=== PATIENT | male | born 1950 | race Caucasian/White ===

== ENCOUNTER → 2017-10-22 | Outpatient (CLI) | payer MEDICARE | END | disposition home or self-care (01) | LOC: CFH 11:38 | PROVIDERS: ATTEND Nurse Practitioner | DX: M16.11 Unilateral primary osteoarthritis, right hip (principal); M51.37 Other intervertebral disc degeneration, lumbosacral region | CPT/HCPCS: 72100 ==

== ENCOUNTER → 2017-11-11 | Outpatient (CLI) | payer MEDICARE | END | disposition home or self-care (01) | LOC: CFH 11:51 | PROVIDERS: ATTEND Nurse Practitioner | DX: M51.17 Intervertebral disc disorders with radiculopathy, lumbosacral region (principal); M48.07 Spinal stenosis, lumbosacral region | CPT/HCPCS: 72148 ==

== ENCOUNTER 2017-11-25 10:29 | Emergency (ER) | payer MEDICARE ==
[~2017-11-25] VITALS: Ht 172.7 cm; Wt 109.7 kg
[2017-11-25 10:31] VITALS: BP 136/76
[2017-11-25] MEDS ORDERED: FLUORESCEIN OPHTHALMIC 1 MG STRIP ONE (10:47)
[2017-11-25] MEDS ORDERED: PROPARACAINE OPHTH 0.5%, 15ML ONE (10:47)
[2017-11-25] MEDS ORDERED: PROPARACAINE OPHTH 0.5%, 15ML EACHEYE ONE (11:00)
[2017-11-25] MEDS ORDERED: FLUORESCEIN OPHTHALMIC 1 MG STRIP EACHEYE ONE (11:00)
== END 2017-11-25 11:46 | disposition home or self-care (01) ==
LOC: ED 11:40
DX: T15.02XA Foreign body in cornea, left eye, initial encounter (principal); Z88.5 Allergy status to narcotic agent; Z88.0 Allergy status to penicillin; Z88.2 Allergy status to sulfonamides; Y93.89 Activity, other specified; Y99.8 Other external cause status; Y92.009 Unspecified place in unspecified non-institutional (private) residence as the place of occurrence of the external cause
CPT/HCPCS: 65222

== ENCOUNTER 2020-01-04 12:28 | Outpatient (CLI) | payer MEDICARE ==
[~2020-01-04 12:28] MED LIST: ASPI81TA45 PO; ATOR-2 PO; METO25TA91 PO; NITR0.4T28 SL; PRAS10TA4 PO
== END 2020-01-04 23:59 | disposition home or self-care (01) ==
LOC: CVU 12:28
PROVIDERS: ATTEND Internal Medicine Cardiovascular Disease
DX: I65.23 Occlusion and stenosis of bilateral carotid arteries (principal); I25.10 Atherosclerotic heart disease of native coronary artery without angina pectoris
CPT/HCPCS: 93880; 93922

== ENCOUNTER 2020-06-24 14:53 | Emergency (ER) | payer MEDICARE ==
[~2020-06-24] VITALS: Ht 172.7 cm; Wt 108.3 kg
[2020-06-24 16:46] VITALS: BP 138/71
[2020-06-24] MEDS ORDERED: PROPARACAINE OPHTH 0.5%, 15ML ONE (16:52)
[2020-06-24] MEDS ORDERED: FLUORESCEIN OPHTHALMIC 1 MG STRIP ONE (16:52)
--- NOTE | 2020-06-24 16:58 | NUR ---
SYSTEMS DEVELOPER NOTE: PT TO ROOM FROM LOBBY
[2020-06-24] MEDS ORDERED: FLUORESCEIN OPHTHALMIC 1 MG STRIP RIGHTEYE ONE (17:00)
[2020-06-24] MEDS ORDERED: PROPARACAINE OPHTH 0.5%, 15ML RIGHTEYE ONE (17:00)
--- NOTE | 2020-06-24 17:45 | NUR ---
Patient given discharge instructions and they have confirmed that they understand the instructions. Patient ambulatory with steady gait.
== END 2020-06-24 17:50 | disposition home or self-care (01) ==
LOC: ED 16:30
DX: S05.01XA Injury of conjunctiva and corneal abrasion without foreign body, right eye, initial encounter (principal); I10 Essential (primary) hypertension; Z87.891 Personal history of nicotine dependence; X58.XXXA Exposure to other specified factors, initial encounter; Y93.89 Activity, other specified; Y92.89 Other specified places as the place of occurrence of the external cause; Y99.8 Other external cause status
CPT/HCPCS: 99283

== ENCOUNTER 2021-04-12 10:56 | Outpatient (CLI) | payer MEDICARE ==
[~2021-04-12 10:56] MED LIST changes: +APIX5TAB PO; +ROSU10TA2 PO
[2021-04-12 12:08] LABS: MICROSCOPIC AUTO
[2021-04-12 12:13] LABS: BASOPHILS % (AUTO) 1 % (0-1); EOSINOPHILS % (AUTO) 2 % (1-7); LYMPHOCYTES % (AUTO) 44 % (22-44); MEAN CORPUSCULAR HGB CONC 33.4 g/dL (33.2-36.2); MEAN PLATELET VOLUME 7.6 fL (7.4-10.4); MONOCYTES % (AUTO) 7 % (2-9); NEUTROPHILS % (AUTO) 47 % (42-75); PLATELET COUNT 148 x10^3/uL (130-400); RED BLOOD COUNT 4.86 x10^6/uL (4.38-5.82); RED CELL DISTRIBUTION WIDTH 13.9 % (9.4-14.8)
[2021-04-12 12:17] LABS: ANION GAP 8 mmol/L (5-15); CALCIUM 9.3 mg/dL (8.5-10.1); CHLORIDE 108 mmol/L (98-107); CREATININE 1.68 mg/dL (0.7-1.3)
[2021-04-12 12:52] LABS: INTERNATIONAL NORMALIZED RATIO 0.98 (0.93-1.1); PROTHROMBIN TIME 10.5 Seconds (9.6-11.5)
== END 2021-04-12 23:59 | disposition home or self-care (01) ==
LOC: LAB 10:56 → RAD 23:59
PROVIDERS: ATTEND Anesthesiology
DX: Z01.818 Encounter for other preprocedural examination (principal); Z01.89 Encounter for other specified special examinations; R00.1 Bradycardia, unspecified; Z79.899 Other long term (current) drug therapy
CPT/HCPCS: 36415; 71046; 80048; 81001; 85025; 85610; 85730; 87086; 93005